=== PATIENT | male | born 1965 | race Caucasian/White ===

== ENCOUNTER 2017-03-10 15:04 | Emergency (ER) | payer MEDICARE, OTHER ==
[~2017-03-10] VITALS: Ht 175.3 cm; Wt 90.6 kg
[2017-03-10 15:07] VITALS: BP 130/85
[2017-03-10] MEDS ORDERED: OXYcodone/APAP 5/325MG TABLET PO ONE (15:30)
[2017-03-10] MEDS ORDERED: CLINDAMYCIN 300 MG CAPSULE PO ONE (15:30)
[2017-03-10] MEDS ORDERED: OXYcodone/APAP 5/325MG TABLET ONE (15:31)
== END 2017-03-10 15:48 | disposition home or self-care (01) ==
LOC: ED 15:42
DX: K02.9 Dental caries, unspecified (principal)
CPT/HCPCS: 99283